=== PATIENT | female | born 1950 | race Caucasian/White ===

== ENCOUNTER 2018-09-26 11:33 | Inpatient (IN) | payer MEDICARE ==
[~2018-09-26] VITALS: Ht 157.5 cm; Wt 69.1 kg
[2018-09-26 12:53] VITALS: BP 133/85
[2018-09-26] MEDS ORDERED: ONDANSETRON ODT 4 MG TAB.RAPDIS PO PRN (13:00)
[2018-09-26] MEDS ORDERED: TOPI25TA7 PO (13:12)
[2018-09-26] MEDS ORDERED: AMOX1TAB61 PO (13:12)
[2018-09-26] MEDS ORDERED: DIPH25TA64 PO (13:12)
[2018-09-26] MEDS ORDERED: ATEN50TA PO (13:12)
[2018-09-26] MEDS ORDERED: MULT1CAP15 PO (13:12)
[2018-09-26] MEDS ORDERED: OMEP20CA9 PO (13:12)
[2018-09-26] MEDS ORDERED: VANCOMYCIN PER PHARMACY MC PRN (13:30)
[2018-09-26] MEDS: IV NORMAL SALINE 1,000ML 1,000 ML IV SCH ×2 (13:47→21:00)
[2018-09-26 14:22] LABS: CREATININE 0.8 mg/dL (0.6-1.0); GFR 71.8
--- NOTE | 2018-09-26 14:37 | RAD ---
Chest, 2 views, 09/26/2018: HISTORY: Shortness of breath Comparison is made to a study from 10/06/2010. The heart size is normal. There is calcific plaquing of the aorta. No pulmonary infiltrate is seen. There is no evidence of pleural fluid. Mild scattered spurs are present in the spine. IMPRESSION: No acute cardiopulmonary abnormality is detected. Electronically signed by: Robin Arzate MD (09/26/2018 2:34 PM) [facility]
[2018-09-26 14:45] LABS: BILIRUBIN,URINE NEG (NEG); CLARITY,URINE CLEAR; COLOR,URINE YELLOW; GLUCOSE,URINE NEG (NEG)
[2018-09-26 14:46] LABS: BACTERIA,URINE 0 /HPF (0-FEW); NITRITE,URINE NEG (NEG); RBC,URINE 0 /HPF (0-2); SQUAMOUS EPITHELIAL CELL,UR OCC /LPF; UROBILINOGEN,URINE 0.2 mg/dL (0.2 mg/dL); WBC,URINE 0 /HPF (0-4)
--- NOTE | 2018-09-26 14:49 | RAD ---
CT abdomen pelvis without contrast dated 09/26/2018. Comparison made to 05/01/2012. CLINICAL INDICATION: Pelvic pain nausea and vomiting. TECHNIQUE: Contiguous axial imaging the pelvis performed without the administration of IV or oral contrast. One or more of the following individualized dose reduction techniques were utilized for this examination: 1. Automated exposure control 2. Adjustment of the mA and/or kV according to patient size 3. Use of iterative reconstruction technique. FINDINGS: Limited images of lung bases are clear. Heart size within normal limits. No pleural or pericardial effusion. Solid abdominal viscera not well evaluated in the absence of contrast material. No apparent attenuation abnormality of the liver or spleen. Gallbladder is surgically absent. There is a small hypodense collection at the gallbladder fossa that measures about 2 cm. Pancreas, adrenal glands and kidneys are unremarkable. No stone or hydronephrosis. Unopacified GI tract normal in caliber and contour. No focal bowel wall thickening. No inflammatory stranding in the mesentery. The appendix is normal in caliber. No ascites or lymphadenopathy. There are a few scattered diverticula throughout the colon. No paracolonic inflammatory changes. There is a pelvis show nondistended urinary bladder. Uterus is surgically absent. No free fluid or lymphadenopathy. Bone windows show no acute findings. Mild multilevel spondylosis. IMPRESSION: 1. No acute abnormality of abdomen or pelvis. Normal appendix. 2. Status post cholecystectomy. There is a small hypodense collection of the gallbladder fossa which could represent postoperative hematoma or seroma. 3. Diverticulosis. 4. Status post hysterectomy Electronically signed by: Dakota Arias MD (09/26/2018 2:46 PM) [facility]
[2018-09-26 15:10] VITALS: BP 154/83
[2018-09-26] MEDS ORDERED: VANCOMYCIN 1.75 GM in IV NORMAL SALINE 500ML 500 ML IV ONE (15:30)
[2018-09-26 19:46] VITALS: BP 114/86
[2018-09-26 21:20] LABS: BASO % 0 % (0-3); EOS # 0.1 x10^3/uL (0.0-0.7); EOS % 1 % (0-3); HEMATOCRIT 41.3 % (36.0-47.0); HEMOGLOBIN 13.8 g/dL (12.0-15.5); LYMPH # 1.3 x10^3/uL (1.0-4.8); LYMPH % 11 % (24-48); MEAN CORPUSCULAR HEMOGLOBIN 29 pg (25-35); MEAN CORPUSCULAR HGB CONC 34 g/dL (31-37); MEAN CORPUSCULAR VOLUME 88 fL (79-100); MONO % 9 % (0-9); NEUT # 9.2 x10^3uL (1.8-7.7); NEUT % 79 % (31-73); PLATELET COUNT 269 x10^3/uL (140-400); RED BLOOD COUNT 4.73 x10^6/uL (3.50-5.40); RED CELL DISTRIBUTION WIDTH 13.6 % (11.5-14.5); WHITE BLOOD COUNT 11.6 x10^3/uL (4.0-11.0)
[2018-09-26 21:25] LABS: CALCIUM 8.5 mg/dL (8.5-10.1); CREATININE 0.6 mg/dL (0.6-1.0); POTASSIUM 3.8 mmol/L (3.5-5.1)
[2018-09-26] MEDS: TOPIRAMATE 25 MG TABLET. PO SCH (22:01)
[2018-09-26 22:46] VITALS: BP 150/79
[2018-09-27] MEDS: IV NORMAL SALINE 1,000ML 1,000 ML IV SCH ×3 (00:58→20:53)
[2018-09-27 05:28] VITALS: BP 123/83
[2018-09-27 07:25] LABS: BASO % 0 % (0-3); EOS # 0.2 x10^3/uL (0.0-0.7); EOS % 2 % (0-3); HEMATOCRIT 39.5 % (36.0-47.0); HEMOGLOBIN 13.5 g/dL (12.0-15.5); LYMPH # 1.4 x10^3/uL (1.0-4.8); LYMPH % 16 % (24-48); MEAN CORPUSCULAR HEMOGLOBIN 30 pg (25-35); MEAN CORPUSCULAR HGB CONC 34 g/dL (31-37); MEAN CORPUSCULAR VOLUME 88 fL (79-100); MONO # 0.6 x10^3/uL (0.0-1.1); MONO % 7 % (0-9); NEUT # 6.4 x10^3uL (1.8-7.7); NEUT % 75 % (31-73); PLATELET COUNT 257 x10^3/uL (140-400); RED CELL DISTRIBUTION WIDTH 13.1 % (11.5-14.5); WHITE BLOOD COUNT 8.5 x10^3/uL (4.0-11.0)
[2018-09-27 07:28] LABS: CALCIUM 8.5 mg/dL (8.5-10.1); CREATININE 0.5 mg/dL (0.6-1.0); GFR 123.4; POTASSIUM 3.7 mmol/L (3.5-5.1)
[2018-09-27] MEDS: PANTOPRAZOLE 40 MG TABLET. PO SCH (08:18)
[2018-09-27] MEDS: ATENOLOL 50 MG TABLET PO SCH (08:19)
[2018-09-27] MEDS ORDERED: IOHEXOL 350 MG/ML 100 ML VIAL. IV ONE ×2 (08:45→09:00)
[2018-09-27] MEDS ORDERED: PANTOPRAZOLE IV 40 MG VIAL. IVP SCH (09:30)
[2018-09-27 10:57] VITALS: BP 154/88
--- NOTE | 2018-09-27 12:55 | RAD ---
CTA of the chest with contrast, 09/27/2018: HISTORY: Epigastric pain, shortness of breath Multidetector CT imaging was performed following an IV bolus injection of iodinated contrast material. Multiplanar reconstructions were produced including coronal and sagittal MIP images. No filling defects are seen in the central pulmonary arteries to suggest pulmonary emboli. There is calcific plaquing of the thoracic aorta without evidence of aneurysm or dissection. The heart is within normal limits in size. No mediastinal or hilar adenopathy is evident. No pulmonary mass or consolidation is seen. There is no evidence of pleural fluid. IMPRESSION: No CT evidence of central pulmonary emboli. PQRS Compliance Statement: One or more of the following individualized dose reduction techniques were utilized for this examination: 1. Automated exposure control 2. Adjustment of the mA and/or kV according to patient size 3. Use of iterative reconstruction technique Electronically signed by: Robin Arzate MD (09/27/2018 12:51 PM) [facility]
--- NOTE | 2018-09-27 13:56 | RAD ---
EXAM: Barium esophagram. HISTORY: Epigastric pain. TECHNIQUE: Fluoroscopic images were obtained in multiple positions and obliquities during the oral administration of barium contrast of thin and thick consistencies. Effervescent crystals were administered for dedicated air contrast views. 10 fluoroscopic images were obtained for total fluoroscopy time of 0.9 minutes. COMPARISON: None. FINDINGS: There is normal swallowing function, without evidence of aspiration or penetration. The esophagus is normal in caliber. No esophageal mucosal lesion is seen. There is no delayed contrast transit into the stomach. No hiatal hernia is seen. There is no gastroesophageal reflux during the exam. IMPRESSION: Unremarkable barium esophagram. Electronically signed by: Florencia Centeno MD (09/27/2018 1:53 PM) [facility]
[2018-09-27] MEDS: ACETAMINOPHEN 500 MG TABLET PO PRN ×2 (14:02→22:35)
[2018-09-27 14:48] VITALS: BP 105/68
[2018-09-27] MEDS: VANCOMYCIN 1 GM in IV NORMAL SALINE 250ML 250 ML IV SCH (15:36)
--- NOTE | 2018-09-27 18:40 | PN ---
DATE: 09/27/2018 SUBJECTIVE: The patient had nausea and vomiting. She is having some chest pain. The patient will get an EKG and make further evaluation on her as indicated. The patient's troponins have been negative so far, but she is still having pain in her upper epigastric and lower sternal area. EKG pending. We will continue to monitor on that, get an esophagram as well. She is on Protonix, but it does not seem to be helping her. She did have positive lactic acid, so she was placed on IV antibiotic therapy, seems to be somewhat improved, but still very weak, tired, having nausea, chest discomfort. OBJECTIVE: VITAL SIGNS: Blood pressure 123/83, respiratory rate 18, pulse 65, afebrile. GENERAL: The patient is alert and oriented. LUNGS: Diminished throughout, poor movement of air. CARDIOVASCULAR: Regular sinus rhythm. ABDOMEN: Soft, nontender except in the epigastric areas noted. NEUROLOGIC: Intact. LABORATORY DATA: As described as above. IMPRESSION: Therefore; SIRS, chest pain, dysphagia, nausea. CARMEL VILLAGOMEZ MD DR: ROBBY/carlee JOB#: [id number] / [id number]
[2018-09-27 19:39] VITALS: BP 113/81
[2018-09-27] MEDS: TOPIRAMATE 25 MG TABLET. PO SCH (20:53)
[2018-09-27] MEDS: LACTOBACILLUS RHAMNOSUS GG 1 CAPSULE. PO SCH (20:53)
[2018-09-27 22:48] VITALS: BP 124/79
[2018-09-28] MEDS: IV NORMAL SALINE 1,000ML 1,000 ML IV SCH ×2 (04:06→13:00)
[2018-09-28] MEDS: VANCOMYCIN 1 GM in IV NORMAL SALINE 250ML 250 ML IV SCH (04:06)
[2018-09-28 05:03] VITALS: BP 133/83
[2018-09-28] MEDS: ACETAMINOPHEN 500 MG TABLET PO PRN (05:50)
[2018-09-28] MEDS: ATENOLOL 50 MG TABLET PO SCH (08:52)
[2018-09-28] MEDS: PANTOPRAZOLE 40 MG TABLET. PO SCH (08:52)
[2018-09-28] MEDS: LACTOBACILLUS RHAMNOSUS GG 1 CAPSULE. PO SCH (08:52)
[2018-09-28 10:48] VITALS: BP 155/84
--- NOTE | 2018-09-29 12:41 | EKG ---
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
--- NOTE | 2018-10-05 12:29 | DS ---
DATE OF DISCHARGE: 09/28/2018 HOSPITAL COURSE: The patient came in with severe nausea, vomiting, epigastric discomfort. The patient was admitted, placed on IV fluids, IV Protonix. The patient did not make very good progress overall, required obviously GI consultation. She was transferred down to [facility] for further evaluation with Dr. Mariee for further evaluation and treatment. The patient while here did have a CT abdomen and pelvis, possible seroma was noted. She had a CTA of her chest because of a positive D-dimer, which showed no evidence of a PE. There is calcific plaquing of the thoracic aorta. She also did a barium swallow, which was basically unremarkable, but later showed possible gastritis. In any case, the patient was transferred down to [place] for consultation with GI medicine not available at this facility. IMPRESSION: Severe epigastric discomfort with nausea, vomiting and dehydration, gastritis. PLAN: As above. Continue to monitor the patient as an outpatient, should be held n.p.o. for possible EGD and further evaluation with ERCP down at the [facility]. CARMEL VILLAGOMEZ MD DR: ROBBY/carlee JOB#: [id number] / [id number]
== END 2018-09-28 13:45 | disposition short-term general hospital (02) | DRG 445 ==
LOC: 1 SOUTH 12:16
PROVIDERS: ADMIT Family Medicine; ATTEND Family Medicine
DX: K80.50 Calculus of bile duct without cholangitis or cholecystitis without obstruction (principal); R65.10 Systemic inflammatory response syndrome (SIRS) of non-infectious origin without acute organ dysfunction; R11.2 Nausea with vomiting, unspecified; R07.9 Chest pain, unspecified; R13.10 Dysphagia, unspecified; K29.70 Gastritis, unspecified, without bleeding; E86.0 Dehydration
CPT/HCPCS: 36415; 71046; 71275; 74176; 74220; 80048; 80061; 81001; 82150; 82550; 82565; 83605; 83690; 84484; 85025; 85379; 87040; 87086; 90471; 90756; 93005; J1956; J3370; J7040; J7050; Q0162; Q9967; J7030; Q2035